=== PATIENT | male | born 2000 | race Caucasian/White ===

== ENCOUNTER 2018-03-25 00:25 | Emergency (ER) | payer MEDICAID ==
[~2018-03-25] VITALS: Ht 185.4 cm; Wt 95.4 kg
[~2018-03-25 00:25] MED LIST: AUG500T PO; NO HOME MEDS
[2018-03-25 00:26] VITALS: BP 136/80
[2018-03-25] MEDS ORDERED: LORazepam 2 mg/ml vial IM ONE (01:25)
== END 2018-03-25 02:46 | disposition left against medical advice (07) ==
LOC: ER 00:26
DX: R06.02 Shortness of breath (principal); Z53.21 Procedure and treatment not carried out due to patient leaving prior to being seen by health care provider
CPT/HCPCS: 71046; 99281; J2060

== ENCOUNTER 2018-11-01 20:52 | Emergency (ER) | payer MEDICAID ==
[~2018-11-01] VITALS: Ht 182.9 cm; Wt 104.5 kg
[2018-11-01] MEDS ORDERED: LIDOcaine Viscous 15ml cup MM STA (21:08)
[2018-11-01] MEDS ORDERED: LIDO20SO16 PO (21:09)
[2018-11-01] MEDS ORDERED: PENI250T2 PO (21:09)
--- NOTE | 2018-11-01 21:09 | NUR ---
vital signs deferred as patient gets violent when approached. Patient is alert and interacting with his phone and in absolutely no distress.
== END 2018-11-01 21:41 | disposition home or self-care (01) ==
LOC: ER 20:53
DX: J02.0 Streptococcal pharyngitis (principal); Z79.899 Other long term (current) drug therapy
CPT/HCPCS: 99283

== ENCOUNTER 2019-08-10 08:37 | Emergency (ER) | payer MEDICAID ==
[~2019-08-10] VITALS: Ht 182.9 cm; Wt 112.4 kg
[~2019-08-10 08:37] MED LIST changes: +LIDO20SO16 PO
[2019-08-10 08:39] VITALS: BP 132/85
[2019-08-10] MEDS ORDERED: SULF1TAB49 PO (09:06)
== END 2019-08-10 09:12 | disposition home or self-care (01) ==
LOC: ER 08:37
DX: L02.416 Cutaneous abscess of left lower limb (principal); Z88.1 Allergy status to other antibiotic agents; Z79.899 Other long term (current) drug therapy
CPT/HCPCS: 99283

== ENCOUNTER 2019-11-23 19:43 | Emergency (ER) | payer MEDICAID ==
[~2019-11-23] VITALS: Ht 185.4 cm; Wt 117.3 kg
[2019-11-23] MEDS ORDERED: LORazepam 2 mg/ml vial IM ONE (19:55)
[2019-11-23 20:09] VITALS: BP 140/90
== END 2019-11-23 20:43 | disposition home or self-care (01) ==
LOC: ER 19:43
DX: G47.63 Sleep related bruxism (principal); R06.02 Shortness of breath; R05 Cough; Z88.1 Allergy status to other antibiotic agents; Z79.2 Long term (current) use of antibiotics; Z79.899 Other long term (current) drug therapy
CPT/HCPCS: 96372; 99283; J2060

== ENCOUNTER 2020-02-11 21:47 | Emergency (ER) | payer MEDICAID ==
[~2020-02-11] VITALS: Ht 182.9 cm; Wt 122.7 kg
[2020-02-11 22:31] LABS: BASOPHILS # (AUTO) 0.1 X10'3 (0-0.2); BASOPHILS % (AUTO) 0.3 % (0-1); EOSINOPHILS # (AUTO) 0.2 X10'3 (0-0.9); EOSINOPHILS % (AUTO) 1.1 % (0-6); HEMATOCRIT 42.4 % (42.0-52.0); HEMOGLOBIN 14.2 g/dl (14.0-17.9); LYMPHOCYTES # (AUTO) 2.1 X10'3 (1.1-4.8); LYMPHOCYTES % (AUTO) 13.5 % (21-51); MEAN CORPUSCULAR HEMOGLOBIN 28.5 PG (27.0-31.0); MEAN CORPUSCULAR HGB CONC 33.6 g/dL (33.0-36.5); MEAN CORPUSCULAR VOLUME 84.9 FL (78-98); MEAN PLATELET VOLUME 7.7 FL (7.4-10.4); MONOCYTES # (AUTO) 0.8 X10'3 (0-0.9); MONOCYTES % (AUTO) 5.4 % (2-12); NEUTROPHILS # (AUTO) 12.4 X10'3 (1.8-7.7); NEUTROPHILS % (AUTO) 79.7 % (42-75); PLATELET COUNT 304 X10'3 (140-440); RED BLOOD COUNT 4.99 X10'6 (4.70-6.10); RED CELL DISTRIBUTION WIDTH 12.5 % (11.5-14.5); WHITE BLOOD COUNT 15.6 X10'3 (4.5-11.0)
[2020-02-11] MEDS ORDERED: LORazepam 2 mg/ml vial IV ONE (22:45)
[2020-02-11] MEDS ORDERED: normal saline 1000ML IV soln IVB ONE (22:45)
[2020-02-11 22:46] LABS: ALANINE AMINOTRANSFERASE 20 U/L (12-78); ALBUMIN 3.7 G/DL (3.4-5.0); ALBUMIN/GLOBULIN RATIO 0.9 (1.1-1.5); ALKALINE PHOSPHATASE 102 IU/L (46-116); ANION GAP 12 (8-16); ASPARTATE AMINO TRANSFERASE 24 U/L (10-37); BILIRUBIN,TOTAL 0.3 MG/DL (0.1-1.0); BLOOD UREA NITROGEN 20 MG/DL (7-18); BUN/CREATININE RATIO 15.9 (5.4-32.0); CALCIUM 9.2 MG/DL (8.5-10.1); CHLORIDE 103 MMOL/L (99-107); CREATININE 1.26 MG/DL (0.60-1.10); GLUCOSE 116 MG/DL (70-104); POTASSIUM 3.5 MMOL/L (3.5-5.1); SODIUM 140 MMOL/L (135-145); TOTAL CARBON DIOXIDE 25.5 MMOL/L (24-32); TOTAL PROTEIN 7.7 G/DL (6.4-8.2); eGFR 72 ML/MIN
--- NOTE | 2020-02-11 23:07 | NUR ---
Teleneuro consult initiated.
[2020-02-11 23:14] LABS: ETHANOL < 0.010 GM/DL (0.0-0.010)
[2020-02-11] MEDS ORDERED: etomidate 2mg/ml inj. IV ONE (23:30)
[2020-02-12 00:24] VITALS: BP 120/72
== END 2020-02-12 01:44 | disposition home or self-care (01) ==
LOC: ER 21:47
DX: R56.9 Unspecified convulsions (principal); Z88.1 Allergy status to other antibiotic agents; Z88.8 Allergy status to other drugs, medicaments and biological substances; Z79.2 Long term (current) use of antibiotics; Z79.899 Other long term (current) drug therapy
CPT/HCPCS: 36415; 70450; 71045; 80053; 80320; 84484; 85025; 96374; 96375; 99285; J2060; J7030

== ENCOUNTER 2022-05-18 14:41 | Emergency (ER) | payer MEDICAID ==
[~2022-05-18] VITALS: Ht 185.4 cm; Wt 119.7 kg
[2022-05-18] MEDS ORDERED: normal saline 1000ML IV soln IVB ONE ×2 (15:20→15:25)
[2022-05-18] MEDS ORDERED: MIDAZolam 5mg/ml 2ml vial IM ONE (15:20)
[2022-05-18 16:08] LABS: CLARITY,URINE CLEAR (Clear); COLOR,URINE YELLOW (Yellow); GLUCOSE, URINE NEGATIVE (Neg); KETONES,URINE NEGATIVE (Neg); LEUKOCYTE ESTERASE ,URINE NEGATIVE (Neg); NITRITES, URINE NEGATIVE (Neg); OCCULT BLOOD,URINE MODERATE (Neg); PH,URINE 5.5 (4.8-8.0); PROTEIN,URINE 30 mg/dl (Neg); UROBILINOGEN,URINE 0.2 E.U/dL (0.2-1.0)
[2022-05-18 16:09] LABS: UA COLLECTION TYPE VOIDED
[2022-05-18 16:30] LABS: WBC,URINE 0-4 /HPF (0-4)
[2022-05-18 16:31] LABS: BACTERIA,URINE NONE SEEN /HPF (Neg); MUCUS STRANDS MODERATE /LPF (Neg); SQUAMOUS EPITHELIAL CELL,UR MODERATE /LPF (FEW)
[2022-05-18] MEDS ORDERED: ibuprofen 100 MG/5 ML oral susp PO ONE (16:45)
[2022-05-18 16:49] LABS: BASOPHILS % (AUTO) 0.5 % (0-1); EOSINOPHILS % (AUTO) 0.5 % (0-6); HEMOGLOBIN 13.4 g/dl (14.0-17.9); LYMPHOCYTES # (AUTO) 0.9 X10'3 (1.1-4.8); LYMPHOCYTES % (AUTO) 10.3 % (21-51); MEAN CORPUSCULAR HEMOGLOBIN 28.3 PG (27.0-31.0); MEAN CORPUSCULAR HGB CONC 34.3 g/dL (33.0-36.5); MEAN CORPUSCULAR VOLUME 82.6 FL (78-98); MEAN PLATELET VOLUME 8.5 FL (7.4-10.4); MONOCYTES # (AUTO) 0.7 X10'3 (0-0.9); MONOCYTES % (AUTO) 8.2 % (2-12); NEUTROPHILS # (AUTO) 6.7 X10'3 (1.8-7.7); NEUTROPHILS % (AUTO) 80.5 % (42-75); PLATELET COUNT 202 X10'3 (140-440); RED BLOOD COUNT 4.73 X10'6 (4.70-6.10); RED CELL DISTRIBUTION WIDTH 13.2 % (11.5-14.5); WHITE BLOOD COUNT 8.4 X10'3 (4.5-11.0)
[2022-05-18] MEDS ORDERED: ibuprofen tablet 400 MG TABLET PO ONE (16:55)
[2022-05-18 17:41] LABS: ALANINE AMINOTRANSFERASE 43 U/L (12-78); ALBUMIN 3.4 G/DL (3.4-5.0); ALBUMIN/GLOBULIN RATIO 0.7 (1.1-1.5); ALKALINE PHOSPHATASE 95 IU/L (46-116); ANION GAP 9 (8-16); ASPARTATE AMINO TRANSFERASE 52 U/L (10-37); BILIRUBIN,TOTAL 0.6 MG/DL (0.1-1.0); BLOOD UREA NITROGEN 10 MG/DL (7-18); BUN/CREATININE RATIO 10.4 (5.4-32.0); CALCIUM 8.6 MG/DL (8.5-10.1); CHLORIDE 94 MMOL/L (99-107); CREATININE 0.96 MG/DL (0.60-1.10); GLUCOSE 111 MG/DL (70-104); LIPASE 101 U/L (73-393); POTASSIUM 4.1 MMOL/L (3.5-5.1); SODIUM 133 MMOL/L (135-145); TOTAL CARBON DIOXIDE 29.6 MMOL/L (24-32); eGFR > 90 ML/MIN
[2022-05-18] MEDS ORDERED: amox tr/potassium clavulanate 875/125mg TAB PO ONE (18:30)
--- NOTE | 2022-05-18 19:19 | NUR ---
Patient sleeping comfortably on guraaron, Mom has asked that we do vitals and give meds during US, as he just got to sleep and is autistic.
[2022-05-18] MEDS ORDERED: AMOX-580 PO (21:13)
[2022-05-18 21:36] VITALS: BP 132/85
[2022-05-19] MEDS ORDERED: POLY17PO10 PO (18:59)
== END 2022-05-18 21:39 | disposition home or self-care (01) ==
LOC: ER 14:41
DX: R10.32 Left lower quadrant pain (principal); Z20.822 Contact with and (suspected) exposure to COVID-19; R50.9 Fever, unspecified; Z88.1 Allergy status to other antibiotic agents; Z88.8 Allergy status to other drugs, medicaments and biological substances; Z79.2 Long term (current) use of antibiotics
CPT/HCPCS: 36415; 76700; 80053; 81001; 83690; 84145; 85025; 87502; 87503; 87635; 96372; 99284; C9803; J2250; J7030

== ENCOUNTER 2022-05-19 16:10 | Emergency (ER) | payer MEDICAID ==
[~2022-05-19] VITALS: Ht 185.4 cm; Wt 130.0 kg
[~2022-05-19 16:10] MED LIST changes: +AMOX-580 PO
[2022-05-19] MEDS ORDERED: MIDAZolam 5mg/ml 2ml vial IM ONE (17:40)
--- NOTE | 2022-05-19 18:12 | NUR ---
Pt went to CT abd after versed IM
--- NOTE | 2022-05-19 18:23 | NUR ---
pt came back from CT abd. Provider attemps to do a bedside U/S guided IV insertion
[2022-05-19 18:45] LABS: BASOPHILS % (AUTO) 0.3 % (0-1); EOSINOPHILS % (AUTO) 0.5 % (0-6); HEMATOCRIT 36.4 % (42.0-52.0); HEMOGLOBIN 12.6 g/dl (14.0-17.9); LYMPHOCYTES # (AUTO) 1.5 X10'3 (1.1-4.8); LYMPHOCYTES % (AUTO) 17.4 % (21-51); MEAN CORPUSCULAR HEMOGLOBIN 28.4 PG (27.0-31.0); MEAN CORPUSCULAR HGB CONC 34.6 g/dL (33.0-36.5); MEAN CORPUSCULAR VOLUME 82.2 FL (78-98); MEAN PLATELET VOLUME 8.6 FL (7.4-10.4); MONOCYTES # (AUTO) 0.7 X10'3 (0-0.9); MONOCYTES % (AUTO) 8.6 % (2-12); NEUTROPHILS # (AUTO) 6.2 X10'3 (1.8-7.7); NEUTROPHILS % (AUTO) 73.2 % (42-75); PLATELET COUNT 241 X10'3 (140-440); RED BLOOD COUNT 4.42 X10'6 (4.70-6.10); WHITE BLOOD COUNT 8.5 X10'3 (4.5-11.0)
[2022-05-19] MEDS ORDERED: POLY17PO10 PO (18:59)
[2022-05-19 19:00] LABS: ALANINE AMINOTRANSFERASE 43 U/L (12-78); ALBUMIN 3.2 G/DL (3.4-5.0); ALBUMIN/GLOBULIN RATIO 0.7 (1.1-1.5); ALKALINE PHOSPHATASE 84 IU/L (46-116); ANION GAP 8 (8-16); ASPARTATE AMINO TRANSFERASE 39 U/L (10-37); BILIRUBIN,TOTAL 0.8 MG/DL (0.1-1.0); BLOOD UREA NITROGEN 7 MG/DL (7-18); BUN/CREATININE RATIO 7.2 (5.4-32.0); CALCIUM 8.5 MG/DL (8.5-10.1); CHLORIDE 95 MMOL/L (99-107); CREATININE 0.97 MG/DL (0.60-1.10); GLUCOSE 105 MG/DL (70-104); LIPASE 84 U/L (73-393); POTASSIUM 3.5 MMOL/L (3.5-5.1); SODIUM 133 MMOL/L (135-145); TOTAL PROTEIN 7.6 G/DL (6.4-8.2); eGFR > 90 ML/MIN
[2022-05-19] MEDS ORDERED: polyethylene glycol 3350 17gm powd pack PO STA (19:05)
[2022-05-19 20:01] VITALS: BP 124/80
== END 2022-05-19 20:12 | disposition home or self-care (01) ==
LOC: ER 16:11
DX: R10.9 Unspecified abdominal pain (principal); R50.9 Fever, unspecified; Z88.1 Allergy status to other antibiotic agents; Z88.8 Allergy status to other drugs, medicaments and biological substances; Z79.899 Other long term (current) drug therapy; Z79.2 Long term (current) use of antibiotics
CPT/HCPCS: 36415; 71045; 74176; 80053; 83605; 83690; 84145; 85025; 87040; 96372; 99285; J2250

== ENCOUNTER 2022-11-02 19:18 | Emergency (ER) | payer MEDICAID ==
[~2022-11-02] VITALS: Ht 182.9 cm; Wt 100.0 kg
[~2022-11-02 19:18] MED LIST changes: -AMOX-580 PO
[2022-11-02 19:23] VITALS: BP 176/108
[2022-11-02] MEDS ORDERED: dexamethasone sod phosphate 10mg/ml inj PO STA (20:05)
[2022-11-02] MEDS ORDERED: diphenhydrAMINE 25mg capsule PO ONE (20:05)
== END 2022-11-02 20:36 | disposition home or self-care (01) ==
LOC: ER 19:21
DX: L23.9 Allergic contact dermatitis, unspecified cause (principal); Z88.1 Allergy status to other antibiotic agents; Z88.5 Allergy status to narcotic agent; Z79.899 Other long term (current) drug therapy
CPT/HCPCS: 99283; J1100; Q0163

== ENCOUNTER 2022-11-04 16:41 | Emergency (ER) | payer MEDICARE, MEDICAID ==
[~2022-11-04] VITALS: Ht 182.9 cm; Wt 120.0 kg
[2022-11-04] MEDS ORDERED: PENI250T2 PO (17:09)
== END 2022-11-04 17:27 | disposition home or self-care (01) ==
LOC: ER 16:42
DX: K04.7 Periapical abscess without sinus (principal); K01.1 Impacted teeth; Z88.1 Allergy status to other antibiotic agents; Z88.5 Allergy status to narcotic agent; Z79.899 Other long term (current) drug therapy; Z88.0 Allergy status to penicillin
CPT/HCPCS: 99283

== ENCOUNTER 2023-10-24 12:56 | Emergency (ER) | payer MEDICARE, MEDICAID ==
[~2023-10-24] VITALS: Ht 185.4 cm; Wt 118.2 kg
[2023-10-24 13:07] VITALS: BP 132/74; PULSE 92; RESP 18; TEMP 97.4; O2SAT 96
[2023-10-24] MEDS ORDERED: SULF1TAB49 PO (13:51)
== END 2023-10-24 13:59 | disposition home or self-care (01) ==
LOC: ER 12:57
DX: L73.9 Follicular disorder, unspecified (principal); Z88.1 Allergy status to other antibiotic agents; Z88.8 Allergy status to other drugs, medicaments and biological substances; Z79.2 Long term (current) use of antibiotics
CPT/HCPCS: 99283

== ENCOUNTER 2024-01-20 11:38 | Emergency (ER) | payer MEDICARE, MEDICAID ==
[~2024-01-20] VITALS: Ht 182.9 cm; Wt 120.5 kg
[2024-01-20 11:43] VITALS: PULSE 96; RESP 16; TEMP 98.2; O2SAT 97
== END 2024-01-20 21:52 | disposition left against medical advice (07) ==
LOC: ER 11:39
DX: K59.00 Constipation, unspecified (principal); R30.9 Painful micturition, unspecified; R10.9 Unspecified abdominal pain; Z53.21 Procedure and treatment not carried out due to patient leaving prior to being seen by health care provider
CPT/HCPCS: 74018

== ENCOUNTER 2024-02-29 07:01 | Day surgery (SDC) | payer MEDICARE, MEDICAID ==
[2024-02-29] VITALS (10 sets, daily range): BP systolic 71–162; BP diastolic 29–89; PULSE 61–91; RESP 15–23; O2SAT 96–98
[~2024-02-29] VITALS: Ht 182.9 cm; Wt 106.0 kg
[~2024-02-29 07:01] MED LIST changes: -AUG500T PO; +FAMO-129 PO; +GABA-530 PO; +GABA-535 PO; -LIDO20SO16 PO; -NO HOME MEDS; +OMEP40CA21 PO
[2024-02-29] MEDS ORDERED: diphenhydrAMINE 50 mg/ml inj ONE (08:54)
[2024-02-29] MEDS ORDERED: MIDAZolam 1 MG/ML 5ML VIAL ONE ×2 (08:54→09:17)
[2024-02-29] MEDS ORDERED: fentaNYL/PF 50MCG/1 ML 2ML syringe ONE (08:54)
[2024-02-29] MEDS ORDERED: LIDOcaine 2% Viscous 15ml cup ONE (08:54)
[2024-02-29] MEDS: midazolam 1 mg/ML 2ml injection ONE (10:28)
[2024-02-29] MEDS ORDERED: meperidine/PF 25mg/ml syringe IV PRN (10:40)
[2024-02-29] MEDS ORDERED: hydrALAZINE 20mg/ml inj. IV PRN (10:40)
[2024-02-29] MEDS ORDERED: ondansetron/PF 4mg/2ml inj IV PRN (10:40)
[2024-02-29] MEDS ORDERED: morphine 2 MG/ML inj. syringe IV PRN (10:40)
[2024-02-29] MEDS ORDERED: acetaminophen 1,000mg/100ml IV 100 ML IV ONE (10:40)
[2024-02-29] MEDS ORDERED: HYDROmorphone/PF 0.2 MG/ML SYRINGE IV PRN ×2 (10:40)
[2024-02-29] MEDS ORDERED: proCHLORperazine 10 MG/2 ml inj IV PRN (10:40)
[2024-02-29] MEDS ORDERED: morphine 4 MG/ML inj SYRINge IV PRN (10:40)
[2024-02-29] MEDS ORDERED: labetalol 20mg/4ml (5mg/ml) syringe IV PRN (10:40)
[2024-02-29] MEDS ORDERED: propofol 10mg/ml 20ml vial IV ONE (10:44)
[2024-02-29] MEDS: ringers solution, lacted 1,000 ML IV SCH (11:30)
[2024-02-29] MEDS ORDERED: ePHEDrine 50MG/ML INJ. IV ONE (11:35)
[2024-02-29] MEDS: ePHEDrine 50MG/ML INJ. IM ONE (11:44)
== END 2024-02-29 12:15 | disposition home or self-care (01) ==
LOC: GI LAB 07:01
PROVIDERS: ATTEND Internal Medicine Gastroenterology
DX: R10.13 Epigastric pain (principal); K29.70 Gastritis, unspecified, without bleeding; Z79.899 Other long term (current) drug therapy
CPT/HCPCS: 43239; 99153; A4618; A4620; G0500; J0131; J0780; J1200; J2175; J2250; J2405; J2704; J3010; J3490; J7030; J7120; Z7506; Z7512; Z7610; 43235; 88305; 88342; J0360; J1170; J2270

== ENCOUNTER 2024-04-04 10:55 | Emergency (ER) | payer MEDICARE, MEDICAID ==
[~2024-04-04] VITALS: Ht 182.9 cm; Wt 106.8 kg
[2024-04-04] MEDS ORDERED: GOLYS PO (12:25)
[2024-04-04 12:30] VITALS: BP 134/80; PULSE 90; RESP 20; TEMP 97.8; O2SAT 99
== END 2024-04-04 12:32 | disposition home or self-care (01) ==
LOC: ER 10:56
DX: K59.00 Constipation, unspecified (principal); Z88.1 Allergy status to other antibiotic agents; Z88.8 Allergy status to other drugs, medicaments and biological substances; Z79.899 Other long term (current) drug therapy
CPT/HCPCS: 99284